=== PATIENT | male | born 1965 | race Caucasian/White ===

== ENCOUNTER 2017-06-16 13:49 | Inpatient (IN) | payer OTHER ==
[~2017-06-16] VITALS: Ht 174 cm; Wt 68.9 kg
--- NOTE | 2017-06-16 21:10 | NUR ---
PRE-ADMISSION NOTE Pt is a 52 y/o male, seen at intake, AAOx4, and is moderately intoxicated from ETOH and benzos at this time. Discussed with patient the admission policies of the unit. Patient is coherent and able to respond to questions appropriately. Pt is ambulatory with steady gait. Vital signs taken and as follows: BP: 134/84, P: 105, R: 16, O2: 96%, T: 98.0, PA: 0/10. Pt verbalized understanding of instructions and teachings regarding disposal of narcotic and other controlled home medications, unit protocols such as taking of vital signs Q4H and handling and disposal of contraband. Will continue with admission upon pts arrival on the unit.
[2017-06-16] MEDS ORDERED: ONDANSETRON 4 MG/2 ML VIAL IM PRN (21:30)
[2017-06-16] MEDS ORDERED: ACETAMINOPHEN 325 MG TABLET PO PRN (21:30)
[2017-06-16] MEDS ORDERED: IBUPROFEN 400 MG TABLET PO PRN (21:30)
[2017-06-16] MEDS ORDERED: MIRALAX 17 GM POWD.PACK PO PRN (21:30)
[2017-06-16] MEDS ORDERED: LOPERAMIDE HCL 2 MG CAPSULE PO PRN ×2 (21:30)
[2017-06-16] MEDS ORDERED: ONDANSETRON ODT 4 MG TAB.RAPDIS SL PRN (21:30)
[2017-06-16] MEDS ORDERED: THIAMINE HCL 200 MG/2 ML VIAL IM ONE (21:30)
[2017-06-16] MEDS ORDERED: LORAZEPAM 2 MG/1 ML VIAL IM PRN (21:30)
[2017-06-16] MEDS ORDERED: MAG HYDROX/AL HYDROX/SIMETH 30 ML LIQUID UDC PO PRN (21:30)
[2017-06-16] MEDS ORDERED: LORAZEPAM 1 MG TABLET PO PRN (21:30)
--- NOTE | 2017-06-16 21:33 | NUR ---
ADMISSION NOTE Pt is a 52 y/o male admitted on 06/16/17 for ETOH and benzo dependence, arrived on the unit at 2133. Pt is allergic to sulfa medications, denies history of seizures. Pt was able to provide UDS. Upon admission CIWA 1, BP: 134/84, P: 105, R: 16, O2: 96%, T: 98.0, PA: 0/10. Weight 152, height 58.5. Pt reports having a PCP, chews tobacco daily, denies being hospitalized within past 30 days. Pt requests aid in smoking cessation. Pt is able to understand and respond to all questions pertaining to his hospitalization. Substance Abuse History is as follows: 1. Xanax PO 1 mg daily, last intake of 0.5 mg on 06/16/17 at 2017 while downstairs at intake, at this rate for 11 years. 2. Beer 12-18 cans 2x weekly, last intake of 10 cans on 06/16/17 at 1700, at this rate for 20 years. 3. Marijuana oral inhalation 3 grams daily, last intake of 1 joint on 06/15/17, at this rate for 33 years. Pt has no treatment history and reports this is his first time stopping Xanax and beer cold . Pt reports that he has tapered benzos to decrease quantity with no complications at home, but has never stopped using. Pt reports he drinks when he has feelings of depression, usually only twice weekly. Pt reports the following family hx of substance abuse: Mother-ETOH and father-ETOH and benzos. Pt reports his father 2 months ago from hemorrhagic stroke with medical history of coronary artery disease and CO. Mother has medical history of bipolar disorder and schizophrenia. Pt reports having a strong support system-mother, sister, , 3 daughters, and brothers/sisters in-laws. PMH: Anxiety, depression, PTSD, tinnitus. Pt denies any hx of seizures. Pt brought home medications Xanax 0.25 mg pills ordered from PCP to be taken 1-4 x daily PRN. Upon assessment, pt is AAOx4, pt is moderately intoxicated and is without withdrawal symptoms at this time. Respirations even and unlabored. Denies SOB, chest pain, N/V/D. Bowel sounds active x 4, abdomen soft. Last BM 06/16/17. PERRLA. Skin intact, no open wounds noted. Pt denies SI/HI. Educational information provided and left at bedside. Pt oriented to room and encouraged to notify staff with any concerns. Safety measures in place. Call light within reach, side rails up x 2 with pads, bed locked and in low position. Will continue to monitor.
[2017-06-16 22:05] LABS: *AMPHETAMINE, URINE NEGATIVE (NEGATIVE); *BARBITURATE, URINE NEGATIVE (NEGATIVE); *CANNABINOID, URINE POSITIVE (NEGATIVE); *COCCAINE, URINE NEGATIVE (NEGATIVE); *OPIATE, URINE NEGATIVE (NEGATIVE); *PHENCYCLIDINE SCREEN,URINE NEGATIVE (NEGATIVE)
[2017-06-16 22:18] LABS: BASOPHILS # (AUTO) 0.1 K/uL (0.0-8.0); BASOPHILS % (AUTO) 0.5 % (0.0-2.0); EOSINOPHILS # (AUTO) 0.3 K/uL (0.0-0.7); EOSINOPHILS % (AUTO) 2.6 % (0.0-7.0); HEMATOCRIT 46.4 % (40-50); HEMOGLOBIN 16.4 G/DL (14.0-18.0); LYMPHOCYTES # (AUTO) 3.1 K/UL (0.8-4.8); LYMPHOCYTES % (AUTO) 23.7 % (20.5-51.5); MEAN CORPUSCULAR HEMOGLOBIN 32.2 UUG (27.0-31.0); MEAN CORPUSCULAR HGB CONC 35 g/dL (32.0-37.0); MEAN CORPUSCULAR VOLUME 91.2 FL (82.0-92.0); MONOCYTES # (AUTO) 0.4 K/UL (0.1-1.30); MONOCYTES % (AUTO) 3.4 % (0.0-11.0); NEUTROPHILS # (AUTO) 9.2 K/UL (1.8-8.9); NEUTROPHILS % (AUTO) 69.8 % (38.5-71.5); PLATELET COUNT (AUTO) 332 K/UL (150-450); RED BLOOD CELL COUNT(AUTO) 5.09 MIL/UL (4.7-6.1); WHITE BLOOD COUNT (AUTO) 13.1 K/UL (4.0-11.2)
[2017-06-16 22:30] LABS: BILIRUBIN,TOTAL 0.5 mg/dL (0.2-1.0); MAGNESIUM 2.2 mg/dL (1.8-2.4); POTASSIUM 3.7 mmol/L (3.5-5.1); TOTAL PROTEIN, SERUM 8.5 g/dL (6.4-8.2)
[2017-06-16] MEDS ORDERED: LORAZEPAM 1 MG TABLET PO ONE (22:45)
--- NOTE | 2017-06-16 22:45 | NUR ---
REFUSAL OF VITAMIN B INJECTION AND NON-ADMIN FOR ATIVAN 2 MG X 1 ORDER Pt refused vitamin B injection at 2129. Pt sedated, laying in bed with eyes closed at 2244, did not administer Ativan 2 mg x 1. Safety measures in place. Call light within reach. Will continue to monitor.
[2017-06-17] VITALS: BP 118/62
--- NOTE | 2017-06-17 | NUR ---
CIWA DEFERRED Pt is laying in bed with eyes closed, CIWA deferred, to be assessed when pt is fully awake per orders. Respirations 16, even and unlabored. Safety measures in place. Call light within reach. Will continue to monitor.
[2017-06-17] MEDS ORDERED: ALPR0.255 PO (02:12)
[2017-06-17 04:00] VITALS: BP 104/67
[2017-06-17] MEDS: LORAZEPAM 1 MG TABLET PO PRN ×3 (06:36→12:35)
--- NOTE | 2017-06-17 06:36 | NUR ---
PRN ATIVAN 1 MG AND ZOFRAN SL ADMINISTRATION Pt reports having intermittent nausea, no episodes of vomiting. Pt also presents with chills, sweats, clammy skin, anxiety. CIWA 7. Ativan 1 mg administered per orders for CIWA 5-15. Safety measures in place. Call light within reach. Will continue to monitor.
[2017-06-17] MEDS ORDERED: LORAZEPAM 1 MG TABLET ONE (06:48)
[2017-06-17] MEDS ORDERED: ONDANSETRON ODT 4 MG TAB.RAPDIS ONE (06:49)
--- NOTE | 2017-06-17 07:16 | NUR ---
END OF SHIFT Pt is a 53 y/o male admitted on 06/16/17 for benzo and ETOH dependence. Pt was dependent on Xanax 1 mg daily for 11 years, beer 12-18 cans 2x weekly and MJ 3 grams daily for 33 years. Pt is on seizure/fall precautions, allergic to sulfa, full code, regular diet. Pt denies hx of seizures. Pt reports PMH of anxiety, depression, PTSD and tinnitus. No ordered taper at this time, PRN Ativan available. Pt came in moderately intoxicated with ETOH % 0.22, reports drinking 10 beers throughout day until 1700 on 06/16/17 and ingesting 0.5 mg of Xanax while downstairs during intake. Pt presented with anxiety, chills, sweats, clammy skin. PRN Ativan 1 mg and Zofran administered at 0630, effective in S/S of withdrawal as verbalized by pt. Last CIWA 7 at 0630. Pt refused vitamin B injection and was not administered x1 Ativan 2 mg at 2130 d/t being sedated at the time. Slept 6 hours. Intake 500 ml, void x 1, stool x 0. Safety measures in place. Call light within reach. Pts needs have been met. Endorsed to day shift nurse.
--- NOTE | 2017-06-17 07:17 | NUR ---
Start of Shift Notes: Received patient in his room. Alert and verbally responsive. Oriented x 4. Able to make his needs known. Respirations even and unlabored. No SOB noted. Skin warm and dry to touch. Abdomen soft and non-distended. BS (+) in all 4 quadrants. No complains of N/V/D or constipation noted. No abdominal discomfort noted. Bladder non-distended. No complains of dysuria noted. Voids independently. Ambulatory ad shayy with steady gait. Patient is a 52 year old male admitted for ETOH/BZO dependence who was placed on PRNs at this time. Prior to admission, patient was using 1 mg of Xanax, 12-18 cans of beer, and 3 grams of marijuana. Has past medical hx of anxiety, depresion, PTSD and tinnitus. l Educated patient on his current plan of care for the day and his medication regimen. Encouraged oral fluid intake and encouraged group participation to learn new skills to prevent relapse. Will continue to monitor.
--- NOTE | 2017-06-17 07:36 | NUR ---
Re-assessment: Zofran and Ativan CIWA 1, per patient PRN Zofran was effective in reducing nausea and relief of anxiety.
[2017-06-17 08:00] VITALS: BP 104/67
[2017-06-17] MEDS: MULTIVITAMINS,THERAPEUTIC TABLET PO SCH (08:26)
[2017-06-17] MEDS: FOLIC ACID 1 MG TABLET PO SCH (08:26)
[2017-06-17] MEDS: THIAMINE HCL 100 MG TABLET PO SCH (08:26)
[2017-06-17] MEDS ORDERED: TUBERCULIN,PURIF.PROT.DERIV. 5 TU/0.1 ML TEST ID ONE (09:00)
--- NOTE | 2017-06-17 10:09 | NUR ---
Ativan 1 mg PO given: CIWA 8, patient presented with moderate anxiety, gross tremors and sweats. Medicated patient with Ativan 1 mg PO given per CIWA score. Will continue to monitor.
--- NOTE | 2017-06-17 10:44 | NUR ---
Therapist prompted client about group times. Client stated he will be attending all groups today.
--- NOTE | 2017-06-17 10:44 | NUR ---
therapist prompted client to attend groups today.
--- NOTE | 2017-06-17 11:09 | NUR ---
Re-assessment: CIWA 4, less anxiety, less tremors and less sweats noted. PRN Ativan 1 mg PO effective in reducing patient's withdrawal symptoms.
[2017-06-17 12:00] VITALS: BP 153/74
[2017-06-17] MEDS: CLONIDINE HCL 0.1 MG TABLET PO PRN ×2 (12:36→21:07)
--- NOTE | 2017-06-17 12:36 | NUR ---
Ativan 1 mg PO/Clonidine 0.1mg PO given: Patient's blood pressure 153/74, Pulse 92. CIWA 9, patient tremulous and dropped his tray due to tremors. Appears anxious, flushed with sweats. Medicated patient with Ativan 1 mg PO and Clonidine 0.1mg PO as ordered. Will monitor for effectiveness.
--- NOTE | 2017-06-17 13:36 | NUR ---
Re-assessment: CIWA 5, per patient, he feels relieved from anxiety, less tremors, less sweats noted. BP 135/81. PRN Clondine and Ativan were effective.
[2017-06-17] MEDS: NICOTINE 14 MG/24HR PATCH TD SCH (14:40)
[2017-06-17] MEDS: GABAPENTIN 100 MG CAPSULE PO SCH ×2 (14:41→21:06)
[2017-06-17] MEDS ORDERED: LORAZEPAM 1 MG TABLET PO SCH ×2 (15:00→21:00)
[2017-06-17 16:00] VITALS: BP 130/87
--- NOTE | 2017-06-17 18:51 | NUR ---
End of Shift Notes: Patient is placed on a 5-day Ativan taper today. No adverse reactions noted. Patient is tolerating taper well. VS monitored closely. No significant abnormalities noted. Withdrawal symptoms were closely monitored. Initial CIWA 8, patient presented with anxiety, tremors and sweats. Last CIWA 4. Medicated patient with Ativan 1 mg PO at 1009 for CIWA 8 with help after 1 hour. Per patient, Ativan has been effective in reducing patients withdrawal symptoms. Patient is compliant with care and treatment. Able to participate in group despite her withdrawal symptoms. All needs met and attended. Will continue to monitor closely.
--- NOTE | 2017-06-17 19:30 | NUR ---
START OF SHIFT Pt is a 53 y/o male admitted on 06/16/17 for benzo and ETOH dependence. Pt was dependent on Xanax 1 mg daily for 11 years, beer 12-18 cans 2x weekly and MJ 3 grams daily for 33 years. Pt is on seizure/fall precautions, allergic to sulfa, full code, regular diet. Pt denies hx of seizures. Pt reports PMH of anxiety, depression, PTSD and tinnitus. No ordered taper at this time, PRN Ativan available. Pt came in moderately intoxicated with ETOH % 0.22, reports drinking 10 beers throughout day until 1700 on 06/16/17 and ingesting 0.5 mg of Xanax while downstairs during intake. Pt presented with anxiety, intermittent chills, sweats, clammy skin, intermittent tremors, restlessness. Respirations 16, even and unlabored. Denies N/V/D. Denies chest pain or SOB. Medications due. Safety measures in place. Call light within reach. Will continue to monitor. Addendum: 06/18/17 at 0515 by SABINO ARTEAGA RN PT ON 5 DAY ATIVAN TAPER THAT STARTED ON 06/17/17, TOLERATING WELL.
[2017-06-17 20:00] VITALS: BP 155/76
[2017-06-17] MEDS: diphenhydrAMINE 50 MG CAPSULE PO PRN (21:07)
--- NOTE | 2017-06-17 21:07 | NUR ---
PRN BENADRYL ADMINISTRATION Pt requests sleep aid. Safety measures in place. Call light within reach. Will continue to monitor.
--- NOTE | 2017-06-17 22:07 | NUR ---
PRN BENADRYL REASSESSMENT Pt is laying in bed with eyes closed. Safety measures in place. Call light within reach. Will continue to monitor.
[2017-06-18] VITALS: BP 99/55
--- NOTE | 2017-06-18 | NUR ---
CIWA DEFERRED Pt is laying in bed with eyes closed, CIWA deferred, to be assessed when pt is awake per orders. Respirations 16, even and unlabored. Safety measures in place. Call light within reach. Will continue to monitor.
[2017-06-18 04:00] VITALS: BP 146/57
[2017-06-18] MEDS: HYDROXYZINE PAMOATE 25 MG CAPSULE PO PRN (04:48)
--- NOTE | 2017-06-18 04:48 | NUR ---
PRN VISTARIL 25 MG ADMINISTRATION Pt appears anxious. Denies chills or sweats. Mild tremors and restlessness present. Safety measures in place. Call light within reach. Will continue to monitor.
[2017-06-18] MEDS ORDERED: HYDROXYZINE PAMOATE 25 MG CAPSULE ONE (05:01)
--- NOTE | 2017-06-18 05:48 | NUR ---
PRN VISTARIL REASSESSMENT Pt verbalizes improvement in anxiety. Denies tremors, chillls, sweats. Pt is laying in bed watching TV. Safety measures in place. Call light within reach. Will continue to monitor.
--- NOTE | 2017-06-18 07:12 | NUR ---
END OF SHIFT Pt is a 53 y/o male admitted on 06/16/17 for benzo and ETOH dependence. Pt was dependent on Xanax 1 mg daily for 11 years, beer 12-18 cans 2x weekly and MJ 3 grams daily for 33 years. Pt is on seizure/fall precautions, allergic to sulfa, full code, regular diet. Pt denies hx of seizures. Pt reports PMH of anxiety, depression, PTSD and tinnitus. Pt is on a 5 day Ativan taper started on 06/17/17, tolerating well. Pt presented with anxiety, intermittent chills, sweats, clammy skin, intermittent tremors, restlessness. Scheduled medications and PRN Benadryl, Clonidine and Vistaril administered, effective in S/S of withdrawal as verbalized by pt. Last CIWA 5 at 0400. Pt slept 5 hours. Intake 1000 ml, void x 1 , stool x 0. Safety measures in place. Call light within reach. Pts needs have been met. Endorsed to day shift nurse.
--- NOTE | 2017-06-18 07:13 | NUR ---
Start of Shift Notes: Received patient in his room. Alert and verbally responsive. Oriented x 4. Able to make his needs known. Respirations even and unlabored. No SOB noted. Skin warm and dry to touch. Abdomen soft and non-distended. BS (+) in all 4 quadrants. No complains of N/V/D or constipation noted. No abdominal discomfort noted. Bladder non-distended. No complains of dysuria noted. Voids independently. Ambulatory ad shayy with steady gait. Patient is a 52 year old male admitted for ETOH/BZO dependence who was placed on a 5-day Ativan taper as ordered. No adverse reactions. Prior to admission, patient was using 1 mg of Xanax, 12-18 cans of beer, and 3 grams of marijuana. Has past medical hx of anxiety, depression, PTSD and tinnitus. l Educated patient on his current plan of care for the day and his medication regimen. Encouraged oral fluid intake and encouraged group participation to learn new skills to prevent relapse. Will continue to monitor.
[2017-06-18 08:00] VITALS: BP 109/75
[2017-06-18] MEDS: NICOTINE 14 MG/24HR PATCH TD SCH (08:09)
[2017-06-18] MEDS: GABAPENTIN 100 MG CAPSULE PO SCH ×2 (08:10→14:07)
[2017-06-18] MEDS: FOLIC ACID 1 MG TABLET PO SCH (08:10)
[2017-06-18] MEDS: MULTIVITAMINS,THERAPEUTIC TABLET PO SCH (08:10)
[2017-06-18] MEDS: THIAMINE HCL 100 MG TABLET PO SCH (08:10)
[2017-06-18] MEDS: LORAZEPAM 1 MG TABLET PO SCH ×3 (08:10→20:38)
[2017-06-18 12:00] VITALS: BP 137/61
--- NOTE | 2017-06-18 14:02 | NUR ---
Therapist prompted client to attend group today. Client agreed to attend.
[2017-06-18 14:06] LABS: HEPATITIS B SURFACE AG Negative (Negative)
[2017-06-18] MEDS ORDERED: hydrALAZINE HCL 50 MG TABLET PO PRN (14:30)
[2017-06-18 16:00] VITALS: BP_SYST 132; BP_SYST 152; BP_DIAS 68
[2017-06-18] MEDS: CLONIDINE HCL 0.1 MG TABLET PO PRN (17:25)
--- NOTE | 2017-06-18 17:25 | NUR ---
PRN Pt with co=115/68. Catapres po prn per MD order given and tolerated well.
--- NOTE | 2017-06-18 17:29 | NUR ---
Transfer of care: Care transferred to receiving nurse. All pertinent information explained and discussed.
--- NOTE | 2017-06-18 18:15 | NUR ---
End of Shift Notes: Patient continues to be on a 5-day Ativan taper today. No adverse reactions noted. Patient is tolerating taper well. VS monitored closely. Withdrawal symptoms were closely monitored. Last CIWA 3 Per patient, Ativan has been effective in reducing patients withdrawal symptoms. Patient is compliant with care and treatment. Able to participate in group despite his withdrawal symptoms. All needs met and attended. NO distress noted at this time.
--- NOTE | 2017-06-18 19:15 | NUR ---
START OF SHIFT Received 52 year old male patient admitted on 06/16/17 for ETOH, Xanax and Marijuana dependency. Pt is full code with allergy to Sulfa. He reports a PMHx of anxiety, depression, PTSD and Tinnitus. Pt reports using Xanax PO 1 mg daily for 11 years. Last dose was 0.5 gram on 06/16/17. ETOH (beer) 12-18 cans 2x weekly for 20 years. Last dose was 10 beers on 06/16/17. And Marijuana 3 grams daily for 33 years. Last dose was "1 joint" on 06/15/17. Pt is currently receiving 5 day Ativan taper started on 06/17/17 and is tolerating well. Per endorsement, pt was noted with increased BP and received PRN Clonidine. Pt is alert and oriented x4, breathing is even and unlabored. Safety measures in place. Will monitor.
[2017-06-18 20:00] VITALS: BP 146/79
[2017-06-18] MEDS: GABAPENTIN 300 MG CAPSULE PO SCH (20:38)
[2017-06-18] MEDS: diphenhydrAMINE 50 MG CAPSULE PO PRN (23:02)
--- NOTE | 2017-06-18 23:02 | NUR ---
PRN BENADRYL Pt complains of inability to sleep. PRN Benadryl administered as ordered. Safety measures in place. Will continue to monitor effectiveness.
[2017-06-19] VITALS: BP 118/69
--- NOTE | 2017-06-19 | NUR ---
CIWA DEFERRED CIWA deferred d/t pt lying in bed with eyes closed noted to be asleep. Safety measures in place. Will monitor.
--- NOTE | 2017-06-19 00:02 | NUR ---
PRN BENADRYL REASSESSMENT PRN medication effective. Pt is lying in bed with eyes closed noted to be asleep. Breathing even and unlabored. Respirations 16. Safety measures in place. Will continue to monitor.
[2017-06-19] MEDS: HYDROXYZINE PAMOATE 25 MG CAPSULE PO PRN (02:23)
--- NOTE | 2017-06-19 02:23 | NUR ---
PRN VISTARIL Pt complains of anxiety and restlessness. PRN Vistaril administered as ordered. Breathing even and unlabored. Safety measures in place. Will monitor.
--- NOTE | 2017-06-19 03:23 | NUR ---
PRN VISTARIL REASSESSMENT PRN medication is effective. Pt lying in bed with eyes closed noted to be asleep. Breathing even and unlabored. Safety measures in place. Will monitor.
--- NOTE | 2017-06-19 04:00 | NUR ---
VITALS REFUSED, CIWA DEFERRED 0400 vitals refused. CIWA deferred d/t pt is lying in bed with eyes closed noted to be asleep. Breathing is even and unlabored. Safety measures in place. Will monitor.
--- NOTE | 2017-06-19 06:58 | NUR ---
END OF SHIFT Pt is a 52 year old male patient admitted on 06/16/17 for ETOH, Xanax and Marijuana dependency. Pt is full code with allergy to Sulfa. He continues on his modified Ativan taper and is tolerating well. At 2302 he received PRN Benadryl, at 0223 he received PRN Vistaril. He slept a total of 6 hrs, Intake:950mL, Void:x1, BM:0, CIWA:4 Pt remains alert and oriented x4, breathing is even and unlabored. Safety measures in place. Will endorse to AM shift.
--- NOTE | 2017-06-19 07:42 | NUR ---
START OF SHIFT Pt 52 y/o male admitted for benzo/ etoh dependence. Pt received in room on bed with eyes closed resting, but easily arousable to name. Perrla. Skin warm and dry to touch. Respirations even and unlabored. It was reported that pt slept for 6 hours last night. Bed on lowest position with side rails x2 up for safety. Call light within reach. No distress noted at this time.
[2017-06-19] MEDS: THIAMINE HCL 100 MG TABLET PO SCH (08:28)
[2017-06-19] MEDS: MULTIVITAMINS,THERAPEUTIC TABLET PO SCH (08:28)
[2017-06-19] MEDS: LORAZEPAM 1 MG TABLET PO SCH ×2 (08:28→21:53)
[2017-06-19] MEDS: GABAPENTIN 300 MG CAPSULE PO SCH ×3 (08:28→21:53)
[2017-06-19] MEDS: FOLIC ACID 1 MG TABLET PO SCH (08:28)
[2017-06-19] MEDS: NICOTINE 14 MG/24HR PATCH TD SCH (08:29)
[2017-06-19 08:49] VITALS: BP 106/58
[2017-06-19 13:00] VITALS: BP 167/83
[2017-06-19] MEDS: CLONIDINE HCL 0.1 MG TABLET PO PRN (13:21)
--- NOTE | 2017-06-19 13:23 | NUR ---
PRN Pt with aa=493/83. catapres po prn per MD order given and tolerated well.
--- NOTE | 2017-06-19 14:23 | NUR ---
PRN EVAL Pt with wy=[id number]/62
[2017-06-19] MEDS: NICOTINE POLACRILEX 4 MG GUM-PK OF TEN BC PRN ×2 (15:16→21:57)
--- NOTE | 2017-06-19 15:17 | NUR ---
PRN Pt with nicotine craving. Nicotine gum prn per MD order given and tolerated well.
--- NOTE | 2017-06-19 16:17 | NUR ---
PRN EVAL Pt states nicotine gum is effective.
[2017-06-19 17:38] VITALS: BP 128/88
--- NOTE | 2017-06-19 18:50 | NUR ---
END OF SHIFT Pt 52 y/o male admitted for benzo/ etoh dependence. Pt alert and oriented to name, place, and time. Perrla. Skin warm and dry to touch. Respirations even and unlabored. Pt with bilateral hand tremors noted slightly. Pt observed mostly in activity room and patio throughout the day. Pt attended group activity. Pt was seen by MD today. Pt medication compliant. No ASE noted. Bed on lowest position with side rails x2 up for safety. Call light within reach. No distress noted at this time.
--- NOTE | 2017-06-19 19:05 | NUR ---
Start of Shift Patient Received. Patient is in activities room participating in group activities. Patient is a 52 year old male admitted on 06/16/17 for Benzo and ETOH Dependence under the care of Dr. Yeager. Patient is currently receiving a 5 day Ativan taper. He verbalizes allergies to Sulfa, wishes to be full code, following a regular diet, placed on fall and seizure precautions, skin noted intact. Patients past medical history noted as anxiety, depression, PTSD, Tinnitus. Per endorsement, patient was given PRN Clonidine with medication noted to be effective. Last noted CIWA 3. All needs attended to promptly. Will continue plan of care as ordered.
[2017-06-19 20:30] VITALS: BP 138/88
[2017-06-19] MEDS ORDERED: AMLODIPINE 5 MG TABLET PO ONE (21:00)
[2017-06-20 00:27] VITALS: BP 109/67
[2017-06-20] MEDS: diphenhydrAMINE 50 MG CAPSULE PO PRN ×2 (00:30→21:32)
--- NOTE | 2017-06-20 00:33 | NUR ---
PRN Medication Administration Patient noted awake and verbalizing inability of falling asleep. PRN Benadryl administered as per order. Will continue to monitor.
[2017-06-20] MEDS: NICOTINE POLACRILEX 4 MG GUM-PK OF TEN BC PRN ×2 (01:54→21:31)
[2017-06-20 04:00] VITALS: BP 112/65
--- NOTE | 2017-06-20 07:29 | NUR ---
PRN Medication Reassessment/End of Shift Patient is in bed awake alert and verbally responsive. Breathing even and non labored. Patient is a 52 year old male admitted on 06/16/17 for Benzo and ETOH Dependence under the care of Dr. Yeager. Patient is currently receiving a 5 day Ativan taper. He verbalizes allergies to Sulfa, Full Code, Regular Diet, placed on fall and seizure precautions, skin noted intact. Patients past medical history noted as anxiety, depression, PTSD, Tinnitus. Patient was given PRN Benadryl with medication noted to be not effective. Patient verbalized of sleeping in intervals. All needs attended to promptly. Will continue plan of care as ordered.
--- NOTE | 2017-06-20 07:45 | NUR ---
START OF SHIFT Rcvd endorsement from ongoing nurse, client is in room, he is a/o x 4, he presents with anxious mood, flat affect, and flushed face. He reports decreased in appetite, fatigue and abdominal cramps. He denies any N/V/D. He denies any SI/HI. Encourage client to attend to group therapy for skils to maintain sober. Encourage client to increase PO fluid intake as tolerated to facilitate detox. Client is a 52 y/o male, admitted to [facility] for withdrawal from alcohol and alprazolam . He is on last of 4 day Ativan taper, tolerating well. Last CIWA 6 @ 1999. PRN Benadryl 50mg PO for inability to sleep, he slept 6 hrs. He denies a hx of withdrawal-induced seizures, Client reports allergy to Sulfa , he is full code, regular diet. Side rails x 2 up/padded for seizure precautions. Call light within reach.
[2017-06-20 08:30] VITALS: BP 136/96
[2017-06-20] MEDS: FOLIC ACID 1 MG TABLET PO SCH (08:31)
[2017-06-20] MEDS: AMLODIPINE 5 MG TABLET PO SCH (08:31)
[2017-06-20] MEDS: GABAPENTIN 300 MG CAPSULE PO SCH ×3 (08:31→21:31)
[2017-06-20] MEDS: THIAMINE HCL 100 MG TABLET PO SCH (08:31)
[2017-06-20] MEDS: MULTIVITAMINS,THERAPEUTIC TABLET PO SCH (08:31)
[2017-06-20] MEDS: NICOTINE 14 MG/24HR PATCH TD SCH (08:33)
[2017-06-20] MEDS ORDERED: LORAZEPAM 1 MG TABLET PO SCH (09:00)
[2017-06-20 12:00] VITALS: BP 124/91
[2017-06-20 16:55] VITALS: BP 136/88
[2017-06-20] MEDS ORDERED: DIPH50CA37 PO (18:33)
[2017-06-20] MEDS ORDERED: CLON0.1T14 PO (18:33)
[2017-06-20] MEDS ORDERED: GABA-534 PO (18:33)
[2017-06-20] MEDS ORDERED: AMLO5TAB2 PO (18:33)
[2017-06-20] MEDS ORDERED: HYDR-3895 PO (18:33)
[2017-06-20] MEDS ORDERED: NICO1PAT25 TD (18:33)
--- NOTE | 2017-06-20 19:15 | NUR ---
END OF SHIFT Client is a 52 y/o male, admitted to [facility] for withdrawal from alcohol and alprazolam. He completed 4 day Ativan taper, tolerated well. Last CIWA 3 @ 1600. Client is compliant with group therapy. Client consumes 75% of meals, adequate PO fkuid intake 3592mL, void x 5, stool x 2. He denies a hx of withdrawal-induced seizures, Client reports allergy to Sulfa , he is full code, regular diet. Side rails x 2 up/padded for seizure precautions. Call light within reach.
[2017-06-20 20:00] VITALS: BP 133/79
--- NOTE | 2017-06-20 20:00 | NUR ---
Start of Shift Pt is a 52 year old male admitted for ETOH/Benzo dependence, placed on Ativan taper - completed. Pt reported consuming Xanax 1mg/daily, Beer 12 - 18 cans 2x weekly and Marijuana 3/g daily. PMH: Anxiety, depression, PTSD and tinnitus. Pt reports allergies to Sulfa, regular diet, fall/seizure precautions and full code. Upon assessment, Pt reports feeling anxious due to discharge scheduled tomorrow. Respirations even/unlabored, denies SOB/chest pain, denies n/v/d, medications due. Pt is scheduled for discharge tomorrow. Safety measures in place, call light within reach, side rails up x2, bed locked and in low position. Will continue to monitor
[2017-06-20] MEDS: HYDROXYZINE PAMOATE 25 MG CAPSULE PO PRN (21:32)
--- NOTE | 2017-06-20 21:32 | NUR ---
PRN Administration Pt reports feeling anxious, requests aid. Vistaril 25mg PRN administered with Nicotine 4mg PRN. Benadryl 50mg PRN administered for sleep.
--- NOTE | 2017-06-20 22:32 | NUR ---
PRN Reassessment Upon reassessment, Pt is in bed resting, eyes closed respirations even/unlabored. Safety measures in place, will continue to monitor.
[2017-06-21] VITALS: BP 112/74
--- NOTE | 2017-06-21 | NUR ---
Vital Signs/CIWA deferred BP 112/74, pulse 61, resp 17, Spo2 98% room air, temp 97.9, no pain CIWA deferred due to pt sleeping, to assess while pt is awake as ordered Safety measures in place, will continue to monitor
--- NOTE | 2017-06-21 04:00 | NUR ---
Pt refused to be woken up for 0400 VS. CIWA deferred due to pt sleeping To assess CIWA while pt is awake as ordered. Safety measures in place, will continue to monitor.
--- NOTE | 2017-06-21 07:00 | NUR ---
End of Shift Pt is a 52 year old male admitted for ETOH/Benzo dependence, placed on Ativan taper - completed. Pt reported consuming Xanax 1mg/daily, Beer 12 - 18 cans 2x weekly and Marijuana 3/g daily. PMH: Anxiety, depression, PTSD and tinnitus. Pt reports allergies to Sulfa, regular diet, fall/seizure precautions and full code. During shift, Pt reported feeling anxious due to discharge scheduled today. Scheduled medications administered along with Vistaril 25mg PRN, Benadryl 50mg PRN and Nicotine 4mg PRN. Latest CIWA 2. Pt slept for 6 hours, intake of 2296 ml PO, voids x2 and stool x0. No s/s of acute withdrawal noted. Pt is scheduled for discharge today. Safety measures in place, call light within reach, side rails up x2, bed locked and in low position. Endorsed to day shift nurse.
[2017-06-21 08:00] VITALS: BP 139/96
--- NOTE | 2017-06-21 08:15 | NUR ---
START OF SHIFT: PT IS A/O X 4. ATIVAN TAPER IS COMPLETED. CIWA 1. HE STATES HE FEELS A BIT ANXIOUS BUT ENTHUSIASTIC ABOUT GOING TO TREATMENT TODAY. CIWA 1.WILL CONTINUE WITH DISCHARGE PLANNING. WILL CONTINUE TO MONITOR.
[2017-06-21 08:53] VITALS: BP 139/84
[2017-06-21] MEDS: NICOTINE POLACRILEX 4 MG GUM-PK OF TEN BC PRN (08:53)
[2017-06-21] MEDS: GABAPENTIN 300 MG CAPSULE PO SCH (08:53)
[2017-06-21] MEDS: FOLIC ACID 1 MG TABLET PO SCH (08:53)
[2017-06-21] MEDS: AMLODIPINE 5 MG TABLET PO SCH (08:53)
[2017-06-21] MEDS: MULTIVITAMINS,THERAPEUTIC TABLET PO SCH (08:53)
[2017-06-21] MEDS: THIAMINE HCL 100 MG TABLET PO SCH (08:53)
[2017-06-21] MEDS: NICOTINE 14 MG/24HR PATCH TD SCH (08:54)
--- NOTE | 2017-06-21 09:40 | NUR ---
DISCHARGE; PT IS A/O X 4. HE DENIES S/I AND H/I. EDUCATED PT ON DISCHARGE INSTRUCTIONS AND MEDICATIONS. BELONGINGS RETURNED. HE STATES HE FEELS MOTIVATED TOWARD RECOVERY. [employer] ESCORTED PT TO [facility] WHERE HE WAS TRANSPORTED BY [facility] TO [facility] AT 0936
== END 2017-06-21 09:36 | disposition other institution (70) | DRG 895 ==
LOC: SRC 20:22
PROVIDERS: ADMIT Internal Medicine; ATTEND Internal Medicine
PROC: HZ2ZZZZ Detoxification Services for Substance Abuse Treatment (ICD-10-PCS; principal; 2017-06-16)
PROC: HZ41ZZZ Group Counseling for Substance Abuse Treatment, Behavioral (ICD-10-PCS; 2017-06-17)
PROC: HZ31ZZZ Individual Counseling for Substance Abuse Treatment, Behavioral (ICD-10-PCS; 2017-06-18)
DX: F10.230 Alcohol dependence with withdrawal, uncomplicated (principal); I15.9 Secondary hypertension, unspecified; D72.823 Leukemoid reaction; F12.20 Cannabis dependence, uncomplicated; F13.230 Sedative, hypnotic or anxiolytic dependence with withdrawal, uncomplicated; Y90.7 Blood alcohol level of 200-239 mg/100 ml; F41.9 Anxiety disorder, unspecified; F17.220 Nicotine dependence, chewing tobacco, uncomplicated; Z88.2 Allergy status to sulfonamides; Z82.49 Family history of ischemic heart disease and other diseases of the circulatory system; Z81.8 Family history of other mental and behavioral disorders; F32.9 Major depressive disorder, single episode, unspecified; F15.21 Other stimulant dependence, in remission
CPT/HCPCS: 36415; 70030-TC; 80307; 80349; 83735; 85025; 86580; 86592; 86705; 86803; 87340; 87806; A4663; G0480; Q0162; Q0163